=== PATIENT | female | born 1985 | race Caucasian/White ===

== ENCOUNTER → 2020-08-02 | Outpatient (REF) | payer BC ==
[~2020-08-02] MED LIST: IBUP80TA PO; MAPA500T17 PO
== END ==
LOC: M SFHCWAGY 17:27
PROVIDERS: ATTEND Advanced Practice Midwife
DX: Z30.432 Encounter for removal of intrauterine contraceptive device (principal); Z12.4 Encounter for screening for malignant neoplasm of cervix

== ENCOUNTER → 2021-11-27 | Outpatient (REF) | payer BC | LOC: M SFHCWAGY 16:58 | PROVIDERS: ATTEND Advanced Practice Midwife | DX: Z12.4 Encounter for screening for malignant neoplasm of cervix (principal) | CPT/HCPCS: 87624; G0123 ==

== ENCOUNTER → 2021-12-18 | Outpatient (CLI) | payer BC | LOC: M WUC 11:41 | PROVIDERS: ATTEND Advanced Practice Midwife | DX: Z80.3 Family history of malignant neoplasm of breast (principal); Z80.41 Family history of malignant neoplasm of ovary ==

== ENCOUNTER → 2022-12-28 | Outpatient (REF) | payer BC ==
[2022-12-28 11:48] LABS: HEMATOCRIT 38.4 % (36.0-47.0); HEMOGLOBIN 12.5 g/dl (12.0-15.5); MEAN CORPUSCULAR HEMOGLOBIN 29.8 pg (27.0-33.0); MEAN CORPUSCULAR HGB CONC 32.6 g/dl (32.0-36.5); MEAN CORPUSCULAR VOLUME 91.4 fl (80.0-96.0); PLATELET COUNT, AUTOMATED 217 10^3/uL (150-450); WHITE BLOOD COUNT 7.9 10^3/uL (4.0-10.0)
[2022-12-28 12:34] LABS: ALBUMIN 3.6 G/DL (3.2-5.2); ALKALINE PHOSPHATASE 63 U/L (46-116); ALT/SGPT 18 U/L (7.0-40); AST/SGOT 15 U/L (<34); BILIRUBIN,TOTAL 0.7 MG/DL (0.3-1.2); BLOOD UREA NITROGEN 11 MG/DL (9-23); CALCIUM LEVEL 8.8 MG/DL (8.5-10.1); CARBON DIOXIDE LEVEL 26 MMOL/L (20-31); CHLORIDE LEVEL 104 MMOL/L (98-107); CHOLESTEROL LEVEL 190 MG/DL (<200); CHOLESTEROL RISK RATIO 4.89 (<5); CREATININE FOR GFR 0.64 MG/DL (0.55-1.30); FREE T4 0.97 NG/DL (0.89-1.76); GLOMERULAR FILTRATION RATE > 60.0 (>60); GLUCOSE, FASTING 87 MG/DL (60-100); HDL CHOLESTEROL 38.8 MG/DL (>40); NON-HDL-C 151.2 MG/DL; POTASSIUM SERUM 4.3 MMOL/L (3.5-5.1); SODIUM LEVEL 138 MMOL/L (136-145); THYROID STIMULATING HORMONE 1.859 uIU/ML (0.55-4.78)
[2022-12-28 18:06] LABS: LDL CHOLESTEROL 122.8 MG/DL (<100); TOTAL PROTEIN 6.6 G/DL (5.7-8.2); TRIGLYCERIDES LEVEL 142 MG/DL (<150)
== END ==
LOC: M SFHCCLAY 07:09
PROVIDERS: ATTEND Nurse Practitioner Family
DX: F41.9 Anxiety disorder, unspecified (principal); Z68.33 Body mass index [BMI] 33.0-33.9, adult

== ENCOUNTER → 2023-07-03 | Outpatient (REF) | payer BC ==
[2023-07-03 18:13] LABS: BASO % 0.5 % (0.0-1.0); EOS # 0.1 10^3/uL (0.0-0.5); EOS % 0.9 % (0.0-3.0); HEMATOCRIT 37.6 % (36.0-47.0); HEMOGLOBIN 12.1 g/dl (12.0-15.5); LYMPH # 1.7 10^3/uL (1.5-5.0); LYMPH % 22.7 % (24.0-44.0); MEAN CORPUSCULAR HEMOGLOBIN 29.5 pg (27.0-33.0); MEAN CORPUSCULAR HGB CONC 32.2 g/dl (32.0-36.5); MEAN CORPUSCULAR VOLUME 91.7 fl (80.0-96.0); MONO # 0.4 10^3/uL (0.0-0.8); MONO % 5.7 % (2.0-8.0); NEUTROPHILS # 5.2 10^3/uL (1.5-8.5); NEUTROPHILS % 70.1 % (36.0-66.0); PLATELET COUNT, AUTOMATED 225 10^3/uL (150-450); WHITE BLOOD COUNT 7.4 10^3/uL (4.0-10.0)
[2023-07-03 18:47] LABS: BLOOD UREA NITROGEN 17 MG/DL (9-23); CALCIUM LEVEL 8.9 MG/DL (8.5-10.1); CARBON DIOXIDE LEVEL 28 MMOL/L (20-31); CHLORIDE LEVEL 104 MMOL/L (98-107); CREATININE FOR GFR 0.62 MG/DL (0.55-1.30); GLOMERULAR FILTRATION RATE > 60.0 (>60); GLUCOSE, FASTING 94 MG/DL (60-100); POTASSIUM SERUM 4.2 MMOL/L (3.5-5.1); SODIUM LEVEL 138 MMOL/L (136-145); THYROID STIMULATING HORMONE 2.262 uIU/ML (0.55-4.78)
== END ==
LOC: M SFHCCLAY 11:15
PROVIDERS: ATTEND Nurse Practitioner Family
DX: F41.9 Anxiety disorder, unspecified (principal); R53.82 Chronic fatigue, unspecified; R42 Dizziness and giddiness

== ENCOUNTER → 2023-10-17 | Outpatient (CLI) | payer BC | LOC: M SLEEP HO 10:51 | PROVIDERS: ATTEND Nurse Practitioner Family | DX: R53.82 Chronic fatigue, unspecified (principal); G47.30 Sleep apnea, unspecified ==

== ENCOUNTER → 2024-01-08 | Outpatient (CLI) | payer BC | LOC: M RAD 06:56 | PROVIDERS: ATTEND Nurse Practitioner Family | DX: R14.0 Abdominal distension (gaseous) (principal) ==

== ENCOUNTER → 2024-06-26 | Outpatient (CLI) | payer BC | LOC: M LRY 14:35 | PROVIDERS: ATTEND Physician Assistant Medical | DX: R19.8 Other specified symptoms and signs involving the digestive system and abdomen (principal) ==

== ENCOUNTER → 2024-07-20 | Outpatient (REF) | payer BC ==
[2024-07-20 15:13] LABS: BASO % 0.6 % (0.0-1.0); EOS # 0.1 10^3/uL (0.0-0.5); EOS % 1.3 % (0.0-3.0); HEMATOCRIT 38.7 % (36.0-47.0); HEMOGLOBIN 12.5 g/dl (12.0-15.5); LYMPH # 1.4 10^3/uL (1.5-5.0); LYMPH % 22.8 % (24.0-44.0); MEAN CORPUSCULAR HEMOGLOBIN 28.8 pg (27.0-33.0); MEAN CORPUSCULAR HGB CONC 32.3 g/dl (32.0-36.5); MEAN CORPUSCULAR VOLUME 89.2 fl (80.0-96.0); MONO # 0.4 10^3/uL (0.0-0.8); MONO % 6.7 % (2.0-8.0); NEUTROPHILS # 4.3 10^3/uL (1.5-8.5); NEUTROPHILS % 68.4 % (36.0-66.0); PLATELET COUNT, AUTOMATED 233 10^3/uL (150-450); RED BLOOD COUNT 4.34 10^6/uL (4.00-5.40); WHITE BLOOD COUNT 6.3 10^3/uL (4.0-10.0)
[2024-07-20 15:35] LABS: ALBUMIN 3.6 G/DL (3.2-5.2); ALKALINE PHOSPHATASE 67 U/L (46-116); ALT/SGPT 20 U/L (7.0-40); AST/SGOT 11 U/L (<34); BILIRUBIN,TOTAL 0.6 MG/DL (0.3-1.2); BLOOD UREA NITROGEN 12 MG/DL (9-23); CALCIUM LEVEL 9.1 MG/DL (8.5-10.1); CARBON DIOXIDE LEVEL 28 MMOL/L (20-31); CHLORIDE LEVEL 104 MMOL/L (98-107); CHOLESTEROL LEVEL 204 MG/DL (<200); CHOLESTEROL RISK RATIO 5.48 (<5); CREATININE FOR GFR 0.69 MG/DL (0.55-1.30); GLOMERULAR FILTRATION RATE > 60.0 (>60); GLUCOSE, FASTING 107 MG/DL (60-100); HDL CHOLESTEROL 37.2 MG/DL (>40); LDL CHOLESTEROL 138.8 MG/DL (<100); NON-HDL-C 166.8 MG/DL; POTASSIUM SERUM 4.7 MMOL/L (3.5-5.1); SODIUM LEVEL 139 MMOL/L (136-145); TRIGLYCERIDES LEVEL 140 MG/DL (<150)
[2024-07-20 15:38] LABS: HEMOGLOBIN A1c 5.4 % (4.0-6.0)
[2024-07-20 15:39] LABS: THYROID STIMULATING HORMONE 2.459 uIU/ML (0.55-4.78)
== END ==
LOC: M SFHCCLAY 08:14
PROVIDERS: ATTEND Physician Assistant
DX: R42 Dizziness and giddiness (principal); E78.2 Mixed hyperlipidemia

== ENCOUNTER → 2025-02-26 | Outpatient (REF) | payer BC ==
[2025-03-03 14:37] LABS: HPV APTIMA Not Detected (Not Detected)
== END ==
LOC: M SFHCCLAY 13:00
PROVIDERS: ATTEND Nurse Practitioner Family
DX: Z01.419 Encounter for gynecological examination (general) (routine) without abnormal findings (principal)
CPT/HCPCS: 87624; G0123

== ENCOUNTER → 2025-02-28 | Outpatient (REF) | payer BC ==
[2025-03-01 17:54] LABS: APPEARANCE, URINE CLOUDY (CLEAR); BACTERIA, URINE AUTO NEGATIVE (NEGATIVE); BILIRUBIN, URINE AUTO NEGATIVE (NEGATIVE); BLOOD, URINE BLOOD NEGATIVE (NEGATIVE); CALCIUM OXALATE CRYSTALS SMALL; COLOR, URINE AMBER (YELLOW); GLUCOSE, URINE (UA) AUTO NEGATIVE (NEGATIVE); KETONE, URINE AUTO NEGATIVE (NEGATIVE); LEUKOCYTE ESTERASE, URINE AUTO NEGATIVE (NEGATIVE); MUCUS, URINE SMALL (NEGATIVE); NITRITE, URINE AUTO NEGATIVE (NEGATIVE); PROTEIN, URINE AUTO NEGATIVE (NEGATIVE); RBC, URINE AUTO 1 /HPF (0-3); SPECIFIC GRAVITY URINE AUTO 1.028 (1.002-1.035); SQUAMOUS EPITHELIAL CELL UR AU 3 /HPF (0-6); UROBILINOGEN, URINE AUTO 0.2 mg/dL (0.0-2.0); WBC, URINE AUTO 0 /HPF (0-3)
== END ==
LOC: M LAB REF 17:34
PROVIDERS: ATTEND Nurse Practitioner Family
DX: R39.11 Hesitancy of micturition (principal)